=== PATIENT | female | born 1945 | race Caucasian/White ===

== ENCOUNTER → 2016-10-05 | Outpatient (CLI) | payer MEDICARE, BC ==
[~2016-10-05] MED LIST: ASPI325T32 PO; ATOR10TA65 PO; HYDR-3498 PO; LEVO88TA3 PO; TRAM50TA2 PO
== END | disposition home or self-care (01) ==
LOC: HKI 09:43
PROVIDERS: ATTEND Orthopaedic Surgery
DX: Z47.89 Encounter for other orthopedic aftercare (principal); M17.11 Unilateral primary osteoarthritis, right knee; M25.561 Pain in right knee; Z96.652 Presence of left artificial knee joint
CPT/HCPCS: G0463

== ENCOUNTER → 2016-12-30 | Outpatient (CLI) | payer MEDICARE, BC ==
--- NOTE | 2016-12-30 14:19 | RADRPT ---
PROCEDURE: XR Knee. CLINICAL INDICATION: Knee pain TECHNIQUE: Three views of the right knee are available for review. COMPARISON: 01/20/2016 FINDINGS: Marginal osteophyte formation and subchondral sclerosis seen at all 3 compartments. Mild to moderat e narrowing is seen at the lateral femorotibial compartment without interval progression. Moderate to severe narrowing is seen at the medial and moderate to severe at the patellofemoral compartments. No acute osseous abnormality. There is subcortical irregularity at the tibial tubercle likely dege nerative in nature or from prior trauma. There is evidence of chondrocalcinosis. Small joint effusi on. IMPRESSION: 1. 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 2. No acute osseous abnormality. 3. Chondrocalcinosis either degenerative in nature or from CPPD arthropathy. RPTAT: EE .Ankit Britton MD, Date Time Electronically viewed and signed by .Ankit Britton MD, on 12/30/2016 14:18 .d/
== END | disposition home or self-care (01) ==
LOC: HKI 08:41
PROVIDERS: ATTEND Orthopaedic Surgery
DX: M17.11 Unilateral primary osteoarthritis, right knee (principal); Z09 Encounter for follow-up examination after completed treatment for conditions other than malignant neoplasm; Z96.651 Presence of right artificial knee joint; E03.9 Hypothyroidism, unspecified; Z85.6 Personal history of leukemia
CPT/HCPCS: 73564; G0463